=== PATIENT | female | born 1950 | race Caucasian/White ===

== ENCOUNTER 2024-01-18 06:19 | Day surgery (SDC) | payer MEDICAID, SELFPAY ==
[2024-01-18] VITALS (14 sets, daily range): BP systolic 157–198; BP diastolic 64–79; BMI 36.6
[2024-01-18 07:21] LABS: Glucose - Point of Care 147 mg/dl (70-99)
[2024-01-18] MEDS: LOW STRENGTH ASPIRIN 324 MG PO (07:22)
--- NOTE | 2024-01-18 07:29 | PTCARENOTE ---
Dr Reid at pt bedside utilizing language line for [place] hand thermal cutter to obtain procedure consent.
--- NOTE | 2024-01-18 08:57 | ITS.CL.PN ---
Principal Programmer - Procedure Note
Procedure
Procedure Note:
CARDIAC CATHETERIZATION REPORT
Date of Procedure: 01/18/24
Referring: Dr. Paolo Lewis MD
Indication: shortness of breath and chest discomfort with positive stress test
PROCEDURE:
1. Right heart catheterization
2. Left heart catheterization
3. Coronary angiography
ACCESS:
6 Syrian right radial artery
5 Syrian right antecubital vein
CATHETERS:
1. 5 Syrian Sparks-Tatum
2. 6 Syrian JL3.5
3. 6 Syrian JR4
HEMODYNAMIC DATA
LV 143/6 (EDP 14) mmHg
AO 143/65 (mean 99) mmHg
RA 5 mmHg
RV 33/2 (EDP 9) mmHg
PA 31/21 (mean 20) mmHg
PCWP 12 mmHg
CO/CI 5.5/2.7
SVR 1374 dsc*-5
PVR 1.5 Wood units
CORONARY ANGIOGRAPHY
Dominance: co-dominant
Left Main: normal, no disease
LAD: large vessel giving rise to a small D1 and moderate caliber D2 before wrappinh around the apex. There are trivial luminal irregularities.
Circumflex: co-dominant large vessel giving rise to a moderate caliber OM1, large LPL, and small caliber LPDA. There are trivial luminal irregularities.
RCA: moderate caliber vessel giving rise to a moderate caliber RDPA and small RPL branch. There are trivial luminal irregularities.
RADIATION
Radiation dose (mGy): 291.2
DAP (cm2.Gy): 21.76
Fluoroscopy time (minutes): 6.4
CONCLUSIONS:
1. Normal biventricular filling pressures, normal pulmonary artery pressure, and normal cardiac output and index.
2. Simultaneous LV/RF pressure gradient does not suggest significant respirophasic variation. Hemodynamics not consistent with either restrictive or constrictive physiology.
3. No aortic stenosis on hemodynamic pullback.
2. Non-obstructive coronary artery disease in a co-dominant system with trivial luminal irregularities only.
RECOMMENDATIONS:
1. Expectant management after cardiac catheterization via right approach. Can resume Eliquis tonight.
2. Continued management of multifactorial dyspnea.
Copy to: Dr. Paolo Lewis MD ([employer]); Radha Robledo MD (PCP)
Signed: Dean Reid MD, PhD
[2024-01-18] MEDS: TENORMIN 50 MG PO (09:20)
[2024-01-18] MEDS: CARDIZEM CD 120 MG PO (09:21)
[2024-01-18] MEDS: NSS 1000 IV (09:24)
--- NOTE | 2024-01-18 11:52 | PTCARENOTE ---
Dr Reid at pt bedside reviewing results with pt. Pt's grandson Allan is interpreting for pt via telephone.
== END 2024-01-18 12:35 | disposition home or self-care (01) ==
LOC: CATH 06:19
PROVIDERS: ATTENDING PHYSICIAN Student in an Organized Health Care Education/Training Program; FAMILY PHYSICIAN Family Medicine; OTHER PHYSICIAN Internal Medicine Interventional Cardiology
DX: I25.10 Atherosclerotic heart disease of native coronary artery without angina pectoris (principal); R06.02 Shortness of breath; R07.89 Other chest pain; R94.39 Abnormal result of other cardiovascular function study; Z79.01 Long term (current) use of anticoagulants; Z79.84 Long term (current) use of oral hypoglycemic drugs
CPT/HCPCS: 82962; 93460; C1894; Q9967